=== PATIENT | female | born 1995 | race Caucasian/White ===

== ENCOUNTER 2017-03-29 07:13 | Emergency (ER) | payer OTHER ==
[2017-03-29] MEDS ORDERED: Ondansetron ODT TAB* 4 MG PO ONE (08:12)
--- NOTE | 2017-03-29 08:17 | UC ---
Abdominal Pain Female HPI - HPI Summary HPI Summary: 2 DAYS OF MALAISE AND NAUSEA. YESTERDAY DEVELOPED WATERY DIARRHEA. GOING EVERY HOUR. NO BLOOD. DENIES ANY RECENT ABX, TRAVEL OR UNUSUAL EXPOSURES. HAS CRAMPY ABD PAIN. NO MEASURED FEVER BUT FEELS CHILLED. - History of Current Complaint Chief Complaint: UCGeneralIllness Stated Complaint: DIARRHEA Time Seen by Provider: 03/29/17 07:32 Hx Obtained From: Patient Hx Last Menstrual Period: 03/14/17 Onset/Duration: Lasting Days, Still Present Severity Initially: Moderate Severity Currently: Moderate Pain Intensity: 0 Pain Scale Used: 0-10 Numeric Location: Diffuse Radiates: No Character: Cramping Aggravating Factor(s): Food Alleviating Factor(s): Nothing Associated Signs and Symptoms: Positive: Decreased Appetite, Nausea, Diarrhea. Negative: Fever, Urinary Symptoms, Vomiting Allergies/Adverse Reactions: Allergies Allergy/AdvReac Type Severity Reaction Status Date / Time No Known Allergies Allergy Verified 03/29/17 07:29 Home Medications: Home Medications Bupropion HCl [Bupropion HCl Xl] 03/29/17 [History] Cholecalciferol [Vitamin D-3] 2,000 unit PO 03/29/17 [History] Norgestimate-Ethinyl Estradiol [Trinessa 0.18/0.215/0.25 mg-35 Mcg] 1 tab PO 07/05 [History] Probiotic Product [Probiotic Daily] 1 cap PO 03/29/17 [History] buPROPion TAB* [Wellbutrin TAB*] 03/29/17 [History] PMH/Surg Hx/FS Hx/Imm Hx Psychological History: Depression - Surgical History Surgical History: None - Social History Alcohol Use: Weekly Substance Use Type: None Smoking Status (MU): Never Smoked Tobacco Review of Systems Constitutional: Chills Respiratory: Negative Cardiovascular: Negative Gastrointestinal: Abdominal Pain, Diarrhea, Nausea Genitourinary: Negative All Other Systems Reviewed And Are Negative: Yes Physical Exam Triage Information Reviewed: Yes Appearance: No Pain Distress, Well-Nourished, Ill-Appearing - MILDLY Vital Signs: Initial Vital Signs Temp 99.3 F 03/29/17 07:23 Pulse 121 03/29/17 07:23 Resp 20 03/29/17 07:23 BP 97/58 03/29/17 07:23 Pulse Ox 100 03/29/17 07:23 Vital Signs Reviewed: Yes Eyes: Positive: Conjunctiva Clear ENT: Positive: Hearing grossly normal Neck: Positive: Supple Respiratory Exam: Normal Cardiovascular: Positive: Tachycardia Abdomen Description: Positive: Soft, Other: - DIFFUSELY TENDER. NO REBOUND, RIGIDITY OR GUARDING. Negative: Distended, Guarding Bowel Sounds: Positive: Present Musculoskeletal: Positive: No Edema Neurological: Positive: Alert Psychological: Positive: Normal Response To Family, Age Appropriate Behavior Skin: Negative: rashes Re-Evaluation - Re-Evaluation First Eval Re-Evaluation Time: 09:35 - FEELS BETTER AFTER 1L NS AND 4MG ZOFRAN BUT NOW HAS TEMP 101.8. PT REQUESTING ANOTHER BAG OF FLUID. DECLINES ANTIPYRETIC. Change: Improved Second Eval Re-Evaluation Time: 10:49 - CONTINUES TO IMPROVE MIDWAY THROUGH 2ND BAG IVF Change: Improved Third Eval Re-Evaluation Time: 11:32 - PT FEELS READY TO GO HOME. 2ND BAG SALINE ALMOST DONE Change: Improved Abd Pain Female Course/Dx - Course Course Of Treatment: PT DECLINED TRANSFER TO ER. FELT BETTER AFTER IVF AND ZOFRAN. ADVISED TO GO TO ER WITHOUT FAIL IF SX WORSEN. STOOL STUDIES SENT. - Differential Dx/Diagnosis Provider Diagnoses: ACUTE DIARRHEA/ABDOMINAL PAIN Discharge - Discharge Plan Condition: Stable Disposition: HOME Prescriptions: Ondansetron ODT TAB* [Zofran Odt TAB*] 4 mg PO Q6H PRN #20 tab.odt PRN Reason: Nausea/Vomiting Patient Education Materials: Acute Diarrhea (ED), Abdominal Pain (ED) Referrals: Staci Box MD [Medical Doctor] - 2 Days Additional Instructions: YOU RECEIVED 2 L SALINE TODAY AND 4MG ZOFRAN. YOU DO HAVE FEVER ALONG WITH YOUR ABDOMINAL PAIN AND DIARRHEA. IF YOU DO NOT NOTICE SIGNIFICANT IMPROVEMENT OVER THE NEXT 1-2 DAYS GO TO THE ER FOR FURTHER EVALUATION. STOOL STUDIES SENT TODAY. WE WILL CALL YOU WITH ANY ABNORMAL RESULTS. ENSURE ADEQUATE HYDRATION. CLEAR LIQUIDS, BLAND DIET. AVOID CAFFEINE, DAIRY, GREASY, SPICY FOODS. ONCE YOU ARE TOLERATING CLEAR LIQUIDS YOU CAN ADVANCE TO SIMPLE, BLAND FOODS.
[2017-03-29] MEDS: NS 0.9% 1000 ML* 1,000 ML IV SCH ×2 (08:18→10:18)
[2017-03-29] MEDS ORDERED: NS 0.9% 1000 ML* 1,000 ML IV SCH (10:15)
[2017-03-29 11:36] VITALS: BP 105/59
--- NOTE | 2017-04-01 12:00 | UC ---
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 PT REQUESTING ANOTHER BAG OF FLUID. DECLINES ANTIPYRETIC. Change: Improved Second Eval Re-Evaluation Time: 10:49 - CONTINUES TO IMPROVE MIDWAY THROUGH 2ND BAG IVF Change: Improved Third Eval Re-Evaluation Time: 11:32 - PT FEELS READY TO GO HOME. 2ND BAG SALINE ALMOST DONE Change: Improved
== END 2017-03-29 11:54 | disposition home or self-care (01) ==
LOC: UCEAST 07:13
DX: R10.84 Generalized abdominal pain (principal); R19.7 Diarrhea, unspecified; R11.0 Nausea; F32.9 Major depressive disorder, single episode, unspecified
CPT/HCPCS: 83630; 87045; 87046; 87077; 87328; 87329; 87493; 87899; 96360; 96361; 99212; A9270-GY; G0463

== ENCOUNTER 2018-08-23 05:34 | Emergency (ER) | payer OTHER ==
[2018-08-23] MEDS ORDERED: Nicotine Inhaler* 10 MG AMP INH PRN (06:17)
[2018-08-23] MEDS ORDERED: Ibuprofen TAB* 600 MG PO ONE (06:24)
--- NOTE | 2018-08-23 06:30 | ED ---
Psychiatric Complaint - HPI Summary HPI Summary: Patient is a 23-year-old female with history of borderline personality disorder taking multiple medications presenting to the ED with feelings of increasing anxiety and depression. She states she is afraid she is not going to be able to "keep it together." She also states "I would love to be , however I would never off myself." Also, "if someone came to neri me at gunpoint, I would say "do it, shoot me."" She currently is a patient of Mikayla Joaquin at [facility] and continues to see her weekly. She states she has been bottling everything us, and will go out of control if she does not seek help. She denies SI/HI or self harm. She has never been in the ED for this. Denies drug use, endorsees alcohol use. Denies smoking hx. - History Of Current Complaint Chief Complaint: EDMentalHealth Time Seen by Provider: 08/23/18 05:45 Hx Obtained From: Patient Hx Last Menstrual Period: 03/14/17 ?: No Onset/Duration: Sudden Onset Timing: Constant Severity Initially: Moderate Severity Currently: Moderate Aggravating Factor(s): Nothing Alleviating Factor(s): Nothing Related History: Positive For: Prior Psychiatric Issues - BPD - Risk Factor(s) Completed Suicide Risk Factors: Negative - Allergies/Home Medications Allergies/Adverse Reactions: Allergies Allergy/AdvReac Type Severity Reaction Status Date / Time No Known Allergies Allergy Verified 08/23/18 06:06 PMH/Surg Hx/FS Hx/Imm Hx Previously Healthy: Yes - Immunization History Hx Pertussis Vaccination: No Immunizations Up to Date: Yes Infectious Disease History: No Infectious Disease History: Denies: Traveled Outside the [place] in Last 30 Days - Social History Occupation: Unemployed Lives: Alone Alcohol Use: Weekly Hx Substance Use: Yes Substance Use Type: Reports: None Hx Tobacco Use: No Smoking Status (MU): Never Smoked Tobacco Review of Systems Constitutional: Negative Negative: Fever, Chills, Fatigue, Skin Diaphoresis Negative: Palpitations, Chest Pain Negative: Shortness Of Breath, Cough Genitourinary: Negative Positive: no symptoms reported, see HPI Negative: Rash, Bruising Neurological: Negative Positive: Anxious, Depressed All Other Systems Reviewed And Are Negative: Yes Physical Exam Triage Information Reviewed: Yes Vital Signs On Initial Exam: Initial Vitals Temp Pulse Resp BP Pulse Ox 99.2 F 93 24 129/85 99 08/23/18 05:37 08/23/18 05:37 08/23/18 05:37 08/23/18 05:37 08/23/18 05:37 Vital Signs Reviewed: Yes Appearance: Positive: No Pain Distress, Well-Nourished Skin: Positive: Warm, Skin Color Reflects Adequate Perfusion Head/Face: Positive: Normal Head/Face Inspection Eyes: Positive: EOMI, FLORENCIO, Conjunctiva Clear Neck: Positive: Supple, No Lymphadenopathy Respiratory/Lung Sounds: Positive: Clear to Auscultation, Breath Sounds Present Cardiovascular: Positive: RRR, Pulses are Symmetrical in both Upper and Lower Extremities Musculoskeletal: Positive: Normal, Strength/ROM Intact Neurological: Positive: Sensory/Motor Intact, Alert, Oriented to Person Place, Time, Speech Normal Psychiatric: Positive: Other - patient appears well - is cooperative for exam. AVPU Assessment: Alert Diagnostics - Vital Signs Vital Signs Temp Pulse Resp BP Pulse Ox 08/23/18 05:37 99.2 F 93 24 129/85 99 - Laboratory Result Diagrams: 08/23/18 06:33 08/23/18 06:33 Lab Statement: Any lab studies that have been ordered have been reviewed, and results considered in the medical decision making process. Course/Dx - Course Course Of Treatment: During the course of treatment, the patient is evaluated for mental health evaluation. She is stable and denies suicidal or homicidal ideations. She is given ibuprofen for headache. She is cleared for mental health evaluation this time as she has no other physical complaints. Case presented to Dr. Baldiwn. Stats at this time OK for discharge. I am ok with this plan, however patient needs close follow up and resourses to her counselor. - Differential Dx/Clinical Impression Provider Diagnosis: Mood disorder Discharge - Sign-Out/Discharge Documenting (check all that apply): Patient Departure - Discharge Plan Condition: Stable Disposition: HOME Patient Education Materials: Mood Disorders (ED), Help Prevent Suicide (ED) Referrals: Naila Coleman NP [Nurse Practitioner] - Additional Instructions: Please follow up with PCP Follow up with counselor - Billing Disposition and Condition Condition: STABLE Disposition: Home
[2018-08-23 06:50] LABS: ABS Basophils 0.1 10^3/ul (0-0.2); ABS Eosinophils 0.4 10^3/ul (0-0.6); ABS Monocytes 0.6 10^3/ul (0-0.8); ABS Neutrophils 2.8 10^3/ul (1.5-7.7); ABS Nucleated RBC 0 10^3/ul; Eosinophil % 5.2 %; Hematocrit 39 % (35-47); Hemoglobin 12.8 g/dl (12.0-16.0); Lymphocyte % 44.1 %; Mean Corpuscular HGB Conc 33 g/dl (31-36); Mean Corpuscular Hemoglobin 29 pg (27-31); Mean Corpuscular Volume 88 fL (80-97); Mean Platelet Volume 7.1 fL (7.4-10.4); Nucleated Red Blood Cells % 0; Platelet Count 462 10^3/ul (150-450); Red Blood Count 4.42 10^6/ul (4.00-5.40); Red Cell Distribution Width 14 % (10.5-15); White Blood Count 6.9 10^3/ul (3.5-10.8)
[2018-08-23 06:51] LABS: Urine Appearance Cloudy; Urine Bilirubin Negative (Negative); Urine Blood Negative (Negative); Urine Color Yellow; Urine Glucose Negative (Negative); Urine Ketones Negative (Negative); Urine Nitrite Negative (Negative); Urine Protein Negative (Negative); Urine Specific Gravity 1.009 (1.010-1.030); Urine Urobilinogen Negative (Negative)
[2018-08-23 07:01] LABS: Albumin 4.3 g/dL (3.2-5.2); Anion Gap 8 mmol/L (2-11); CO2 Carbon Dioxide 28 mmol/L (22-32); Calcium 9.5 mg/dL (8.6-10.3); Chloride 101 mmol/L (101-111); Potassium 4.1 mmol/L (3.5-5.0); Sodium 137 mmol/L (135-145)
[2018-08-23 07:07] LABS: ALT 26 U/L (7-52); AST 26 U/L (13-39); Albumin/Globulin Ratio 1.3 (1-3); Alkaline Phosphatase 71 U/L (34-104); BUN/Creatinine Ratio 13.2 (8-20); Blood Urea Nitrogen 10 mg/dL (6-24); EGFR Non-African American 94.3 (>60); Globulin 3.3 g/dL (2-4); Glucose 94 mg/dL (70-100); Total Protein 7.6 g/dL (6.4-8.9)
[2018-08-23 07:08] LABS: Acetaminophen < 15 mcg/mL; Alcohol 43 mg/dL (<10); Salicylate < 2.50 mg/dL (<30)
[2018-08-23 07:18] LABS: Barbiturates Urine Screen None Detected (None Detect); Benzodiazepine Urine Screen None Detected (None Detect); Urine Cannabinoids Screen None Detected (None Detect)
[2018-08-23 07:24] LABS: TSH (Thyroid Stimulating Horm) 4.31 mcIU/mL (0.34-5.60)
[2018-08-23 11:17] VITALS: BP 142/87
== END 2018-08-23 11:16 | disposition home or self-care (01) ==
LOC: ED 05:34
DX: F39 Unspecified mood [affective] disorder (principal); F41.8 Other specified anxiety disorders
CPT/HCPCS: 36415; 80053; 80307; 80320; 80329; 81003; 84443; 85025; 99281; A9270-GY; G0480